=== PATIENT | female | born 1980 | race Caucasian/White ===

== ENCOUNTER 2017-04-15 15:49 | Emergency (ER) | payer MEDICAID ==
[~2017-04-15] VITALS: Wt 58.3 kg
[2017-04-15] MEDS ORDERED: SOD CHLORIDE 0.9% 1,000 ML IV STA (18:57)
[2017-04-15] MEDS ORDERED: KETOROLAC 30 MG INJ IV STA (18:57)
[2017-04-15] MEDS ORDERED: DIPHENHYDRAMINE 50 MG INJ IV STA (18:57)
[2017-04-15] MEDS ORDERED: METOCLOPRAMIDE 10 MG INJ IV STA (18:57)
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
[2017-04-15 19:26] LABS: BASOPHILS % 0.8 % (0.0-2.0); EOSINOPHILS # 0.1 10^3/ul (0.0-0.5); EOSINOPHILS % 2.5 % (0.0-7.0); HEMATOCRIT 35.7 % (37.0-47.0); HEMOGLOBIN 10.7 g/dl (12.0-16.0); LYMPHOCYTES % 41.7 % (15.0-51.0); MEAN CORPUSCULAR HEMOGLOBIN 21.8 pg (29.0-33.0); MEAN CORPUSCULAR VOLUME 72.9 fl (82.0-101.0); MONOCYTE # 0.5 10^3/ul (0.3-0.9); MONOCYTES % 9.8 % (0.0-11.0); NEUTROPHIL # 2.2 10^3/ul (1.6-7.5); NEUTROPHILS % 45.2 % (39.0-77.0); PLATELET COUNT 284 10^3/UL (140-415); RED CELL DISTRIBUTION WIDTH 17.8 % (11.5-14.5); WHITE BLOOD COUNT 4.8 10^3/ul (4.8-10.8)
[2017-04-15 19:39] LABS: INR 0.86; PROTIME 11.8 Sec (11.9-14.9); PT RATIO 0.9
[2017-04-15 19:40] LABS: PARTIAL THROMBOPLASTIN TIME 27.3 Sec (25.0-35.0)
[2017-04-15 19:54] LABS: CALCIUM 10.2 mg/dl (8.4-10.2); CREATININE 0.58 mg/dl (0.44-1.00); POTASSIUM 4.2 mmol/L (3.5-5.1)
--- NOTE | 2017-04-15 20:31 | RADRPT ---
PROCEDURE: CT Brain without contrast. CLINICAL INDICATION: Headache TECHNIQUE: A CT of the brain was performed on a multidetector CT scanner utilizing axial imaging f rom the skull base through the vertex without IV contrast. Multiplanar reformatted images were made . Images were reviewed on a PACS workstation. The CTDIvol is 44 mGy and the DLP is 712 mGycm. DICOM images are available. One or more of the following dose reduction techniques were utilized: 1.) Automated exposure control 2.) Adjustment of the mA +/- kV according to patient's size 3.) Use of iterative reconstruction technique. COMPARISON: None FINDINGS: There is no intracranial hemorrhage, mass effect, or midline shift. No extra-axial fluid collection is seen. The ventricles and sulci are normal in size and configuration. The density of the brain is normal, and the vu white matter differentiation appears well-preserved. The visualized paranasal sinuses and osseous structures are grossly unremarkable. And IMPRESSION: 1. No evidence of acute intracranial pathology. 2. The brain is normal in appearance. .Mariano Holbrook MD, Date Time Electronically viewed and signed by .Mariano Holbrook MD, on 04/15/2017 20:31 .A/
[2017-04-15 20:47] LABS: URINE BLOOD (Dip) POC Trace-intact (NEGATIVE)
[2017-04-15] MEDS ORDERED: IBUP800T25 PO (22:30)
== END 2017-04-15 22:42 | disposition home or self-care (01) ==
LOC: FTE 15:49
DX: G44.031 Episodic paroxysmal hemicrania, intractable (principal)
CPT/HCPCS: 70450; 80048; 81003; 85025; 85610; 85730; 96374; 96375; J1200; J1885; J2765; J7030; Z7502

== ENCOUNTER 2018-07-29 15:51 | Emergency (ER) | payer MEDICAID ==
[~2018-07-29] VITALS: Ht 165.1 cm; Wt 61.9 kg
[~2018-07-29 15:51] MED LIST: IBUP800T48 PO
[2018-07-29 15:55] VITALS: Ht 165.1 cm; Wt 61.9 kg
[2018-07-29] MEDS ORDERED: ACETAMINOPHEN 325 MG TAB PO STA (19:59)
[2018-07-30 00:10] VITALS: BP 122/76; PULSE 88; RESP 15
--- NOTE | 2018-07-30 02:35 | ERD ---
ER Documentation Chief Complaint Chief Complaint pelvic pain and bleeding since yesterday - 6 weeks HPI History of Present Illness: Patient coming in today with pelvic pain and bleeding since yesterday. Patient reports initial spotting and then mild flow currently present. Patient reports being approximately 6 weeks . Denies any other associated symptoms. Hemodynamically stable. At home pharmacological/nonpharmacological treatment for symptoms: denies Social History: Patient denies tobacco, alcohol, elicit drug use Allergies: NKDA Social Concerns: Denies ROS All systems reviewed and are negative except as per history of present illness. Medications Home Meds Active Scripts Ibuprofen* (Motrin*) 800 Mg Tab, 800 MG PO Q6, #30 TAB Prov:BOOKER,LASHAY 04/15/17 Allergies Allergies: Coded Allergies: No Known Allergy (Unverified , 07/29/18) PMhx/Soc Medical and Surgical Hx: pt denies Medical Hx, pt denies Surgical Hx Hx Alcohol Use: No Hx Substance Use: No Hx Tobacco Use: No FmHx Family History: No diabetes Physical Exam Vitals Vital Signs Date Temp Pulse Resp B/P (MAP) Pulse Ox O2 O2 Flow FiO2 Time Delivery Rate 07/30/18 99.0 88 15 122/76 99 Room Air 00:10 (91) 07/29/18 99.2 88 20 124/58 99 15:55 (80) Physical Exam Const: No acute distress Head: Atraumatic Eyes: Normal Conjunctiva ENT: Normal External Ears, Nose and Mouth. Neck: Full range of motion. No meningismus. Resp: Clear to auscultation bilaterally Cardio: Regular rate and rhythm, no murmurs Abd: Soft, non distended. Normal bowel sounds. Tenderness to suprapubic area. Skin: No petechiae or rashes Back: No midline or flank tenderness Ext: No cyanosis, or edema Neur: Awake and alert Psych: Normal Mood and Affect Result Diagram: 07/29/182005 Results 24 hrs Laboratory Tests Test 07/29/18 20:04 07/29/18 20:06 Urine Color YELLOW Urine Clarity SLIGHTLY CLOUDY Urine pH 7.0 Urine Specific [place] 1.012 Urine Ketones TRACE mg/dL Urine Nitrite NEGATIVE mg/dL Urine Bilirubin NEGATIVE mg/dL Urine Urobilinogen NEGATIVE mg/dL Urine Leukocyte Esterase NEGATIVE [place]/ul Urine Microscopic RBC > 182 /HPF Urine Microscopic WBC 1 /HPF Urine Hemoglobin 3+ mg/dL Urine Glucose NEGATIVE mg/dL Urine Total Protein NEGATIVE mg/dl White Blood Count 6.9 10^3/ul Red Blood Count 5.01 10^6/ul Hemoglobin 11.1 g/dl Hematocrit 37.3 % Mean Corpuscular Volume 74.5 fl Mean Corpuscular Hemoglobin 22.2 pg Mean Corpuscular Hemoglobin Concent 29.8 g/dl Red Cell Distribution Width 15.8 % Platelet Count 402 10^3/UL Mean Platelet Volume 9.6 fl Immature Granulocytes % 0.300 % Neutrophils % 55.9 % Lymphocytes % 33.1 % Monocytes % 7.8 % Eosinophils % 2.2 % Basophils % 0.7 % Nucleated Red Blood Cells % 0.0 /100WBC Immature Granulocytes # 0.020 10^3/ul Neutrophils # 3.9 10^3/ul Lymphocytes # 2.3 10^3/ul Monocytes # 0.5 10^3/ul Eosinophils # 0.2 10^3/ul Basophils # 0.1 10^3/ul Nucleated Red Blood Cells # 0.0 10^3/ul Beta HCG, Quantitative 751.0 mIU/ml Current Medications Medications Dose Sig/Lorena Start Time Status Last (Trade) Ordered Route PRN Stop Time Admin Dose Reason Admin 650 mg ONCE STAT 07/29/18 DC Acetaminophen PO 19:59 (Tylenol 07/29/18 20:00 Tab) Procedures/MDM ED course includes a thorough examination and history. ED course includes labs: CBC, urinalysis, beta quantitative. ED course includes imaging; pelvic/trans vaginal ultrasound Low suspicion for life-threatening medical emergency or gynecological emergency that requires hospitalization/immediate intervention. Otherwise healthy patient presenting with constellation of symptoms likely representing threatened miscarriage as characterized by history, physical exam findings, ultrasound imaging, lab findings. no infection in urine. No leukocytosis patient. No signs of hemorrhage, h/h stable. Ultrasound impression: Tiny sac like structure endometrial canal without evidence of heart beat, yolk sac or pole. Question viable very early intrauterine . Spontaneous cannot be ruled out. Ectopic cannot be ruled out. Correlation with quantitative serial beta HCG levels is therefore recommended.Normal ovaries. No respiratory distress, otherwise relatively well appearing and nontoxic. Patient has not soaked more than 1 pad during ER visit. Patient educated on diagnoses, prescriptions, follow-up care, return precautions. Strict return precautions given for worsening condition; questions answered discharge. Disposition for discharge with followup in 2 days with PCP/clinic for repeat beta hCG and possible ultrasound. She verbalizes understanding. 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 Departure Diagnosis: Primary Impression: Miscarriage, threatened, early Additional Impression: Vaginal bleeding in patient at less than 20 weeks ges... Condition: Stable Patient Instructions: Miscarriage, Bleeding During Early Referrals: [facility] YOU HAVE RECEIVED A MEDICAL SCREENING EXAM AND THE RESULTS INDICATE THAT YOU DO NOT HAVE A CONDITION THAT REQUIRES URGENT TREATMENT IN THE EMERGENCY DEPARTMENT. FURTHER EVALUATION AND TREATMENT OF YOUR CONDITION CAN WAIT UNTIL YOU ARE SEEN IN YOUR DOCTORS OFFICE WITHIN THE NEXT 1-2 DAYS. IT IS YOUR RESPONSIBILITY TO MAKE AN APPOINTMENT FOR FOLOW-UP CARE. IF YOU HAVE A PRIMARY DOCTOR --you should call your primary doctor and schedule an appointment IF YOU DO NOT HAVE A PRIMARY DOCTOR YOU CAN CALL OUR PHYSICIAN REFERRAL HOTLINE AT IF YOU CAN NOT AFFORD TO SEE A PHYSICIAN YOU CAN CHOSE FROM THE FOLLOWING [facility] [address] [facility] [address] [facility] [address] [facility] [facility] [address] [facility] [address] [facility] [address] [facility]. [facility]. [address] [facility]. [facility] YOU HAVE RECEIVED A MEDICAL SCREENING EXAM AND THE RESULTS INDICATE THAT YOU DO NOT HAVE A CONDITION THAT REQUIRES URGENT TREATMENT IN THE EMERGENCY DEPARTMENT. FURTHER EVALUATION AND TREATMENT OF YOUR CONDITION CAN WAIT UNTIL YOU ARE SEEN IN YOUR DOCTORS OFFICE WITHIN THE NEXT 1-2 DAYS. IT IS YOUR RESPONSIBILITY TO MAKE AN APPOINTMENT FOR FOLOW-UP CARE. IF YOU HAVE A PRIMARY DOCTOR --you should call your primary doctor and schedule and appointment IF YOU DO NOT HAVE A PRIMARY DOCTOR YOU CAN CALL OUR PHYSICIAN REFERRAL HOTLINE AT . IF YOU CAN NOT AFFORD TO SEE A PHYSICIAN YOU CAN CHOSE FROM THE FOLLOWING [facility]: [facility] [address] [place] [address] [facility] [address] [place] [address] [facility] [address] [place] [address] [facility] [facility] [place] [address] [facility] [address] [place] [address] OFFICE FAX , [facility] [address] [place] [address] [address] [facility] [address] [place] [address] [address] [place], [facility] [address] [facility], [address], [facility] [address] [address], [facility] [address] [place] [address] [facility] [address] [place] [address] [phone] [address] [facility] [address] - [address] OLIVARES AMARJIT [address] [facility] [address] [place] [address] [facility]. [address], [facility] [address] [address] [facility] [address] [place], [place] [id number] Additional Instructions: Call your primary care doctor TOMORROW for an appointment during the next 2-3 days.See the doctor sooner or return here if your condition worsens before your appointment time. At this time we are unable to determine 100% if you have had a miscarriage. It is important to follow-up in 2-3 days with your primary care doctor/clinic/[employer] or come back to the emergency room, for a repeat blood hormone test and possible ultrasound. Return to ER sooner if you get severe abdominal pain, increased heavy bleeding, fever, chills, or any signs of your condition worsening. PIETER CHRISTOPHER NP Jul 30, 2018 02:35
== END 2018-07-30 00:10 | disposition home or self-care (01) ==
LOC: FTE 15:51
DX: O20.0 Threatened abortion (principal); Z3A.01 Less than 8 weeks gestation of pregnancy
CPT/HCPCS: 36415; 76801; 76817; 81001; 84702; 85025; 86900; 86901; Z7502; Z7610

== ENCOUNTER 2018-10-03 19:45 | Emergency (ER) | payer MEDICAID ==
[~2018-10-03] VITALS: Wt 63.3 kg
[2018-10-03] MEDS ORDERED: LORAZEPAM 0.5 MG TAB PO ONE (21:30)
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
[2018-10-04] MEDS ORDERED: MELO7.5T38 PO (00:35)
[2018-10-04] MEDS ORDERED: LORA-441 PO (00:35)
[2018-10-04 00:52] VITALS: BP 137/58; PULSE 88; RESP 20
== END 2018-10-04 00:52 | disposition home or self-care (01) ==
LOC: FTE 19:45
DX: F41.9 Anxiety disorder, unspecified (principal)
CPT/HCPCS: 70360; 81001; 81025; 93005; Z7502; Z7610